=== PATIENT | female | born 1945 | race Caucasian/White ===

== ENCOUNTER 2019-07-17 17:59 | Emergency (ER) | payer OTHER ==
[2019-07-17] MEDS ORDERED: NA CHLORIDE 0.9% 1,000 ML ONE (20:10)
[2019-07-17] MEDS ORDERED: FOLIC ACID 5 MG/ML VIAL ONE (20:12)
--- NOTE | 2019-07-17 20:28 | RAD REPORT ---
EXAM DESCRIPTION: CT - Head C Spine Mpr Wo Con - 07/17/2019 8:15 pm CLINICAL HISTORY: Head and neck injury status post fall. Head and neck pain COMPARISON: 2013 TECHNIQUE: Computed axial tomography of the head and cervical spine was obtained. Sagittal and coronal reconstruction was performed. All CT scans are performed using dose optimization technique as appropriate and may include automated exposure control or mA/KV adjustment according to patient size. FINDINGS: An intracranial bleed is not seen. The ventricles are normal in caliber. An extra-axial fluid collection is not noted.Fluid within the v isualized sinuses and mastoids is not seen A cervical fracture is not visualized. No dislocation is noted. Mild anterior subluxation C4 on C5 un changed. Spondylosis involves cervical spine. Moderate central spinal stenosis C5-6. Small area sclerosis within the C7 vertebral body is unchanged and is benign IMPRESSION: No acute intracranial abnormality is seen. A cervical fracture is not visualized. If the patient continues to have symptoms to suggest intracra nial /spinal cord pathology then MRI would be recommended
[2019-07-17 20:42] LABS: Protime INR 0.95
[2019-07-17 20:44] LABS: Absolute Lymphocytes (CBC) 2.2 K/uL (0.7-4.9); Basophils % 0.5 % (0-1.3); Hematocrit 35.1 % (36.0-45.0); MPV 8.3 fL (7.6-11.3); RBC Red Blood Cell Count 3.63 M/uL (3.86-4.86)
[2019-07-17 20:52] LABS: ALT/SGPT 17 U/L (12-78); AST/SGOT 10 U/L (15-37); Albumin 3.7 g/dL (3.4-5.0); Alkaline Phosphatase 108 U/L (45-117); BUN Blood Urea Nitrogen 11 mg/dL (7-18); Bicarbonate 28 mmol/L (21-32); Bilirubin Direct 0.1 mg/dL (0-0.2); Bilirubin Total 0.5 mg/dL (0.2-1.0); Glucose Level 86 mg/dL (74-106); Magnesium 2.5 mg/dL (1.8-2.4); NT PRO-BNP 130 pg/mL (<125); Potassium 3.6 mmol/L (3.5-5.1); Protein, Total 6.9 g/dL (6.4-8.2); Sodium Level 142 mmol/L (136-145); Troponin (Emerg Dept Use Only) < 0.02 ng/mL (0.0-0.045)
--- NOTE | 2019-07-17 20:52 | RAD REPORT ---
EXAM DESCRIPTION: [place] Single View07/17/2019 8:36 pm CLINICAL HISTORY: cough COMPARISON: 2017 FINDINGS: Calcified right lung granulomas are present The lungs appear clear of acute infiltrate. The heart is normal size IMPRESSION: No acute abnormalities displayed
[2019-07-17 20:59] LABS: Urine Blood 1+ (NEG); Urine Glucose NEGATIVE (NEG); Urine Protein NEGATIVE (NEG)
[2019-07-17] MEDS ORDERED: ASPIRIN 81 MG CHEWABLE TABLET ONE (21:38)
[2019-07-17] MEDS ORDERED: CEFTRIAXONE/SWI 1gm 1 GM/10 ML SYR ONE (21:38)
--- NOTE | 2019-07-17 21:58 | ER ---
Nurse's Notes [facility] Name: Diane Selby Age: 73 yrs Sex: Female : 1945 Arrival Date: 07/17/2019 Time: 18:11 Bed 14 Private MD: Diagnosis: Weakness;Tremor, unspecified Presentation: 07/17 18:15 Presenting complaint: Patient states: generalized tremors that began 1 hour ago. Pt has ss no other complaints at this time. Transition of care: patient was not received from another setting of care. Onset of symptoms was July 17, 2019. Risk Assessment: Do you want to hurt yourself or someone else? Patient reports no desire to harm self or others. Initial Sepsis Screen: Does the patient meet any 2 criteria? No. Patient's initial sepsis screen is negative. Does the patient have a suspected source of infection? No. Patient's initial sepsis screen is negative. Care prior to arrival: Glucose check: 82. 18:15 Method Of Arrival: EMS: [facility] ss 18:15 Acuity: ANGE 3 ss Historical: - Allergies: 18:17 Codeine; ss - PMHx: 18:17 CVA; Dementia; ESSENTIAL TREMORS; Myocardial infarction; ss - PSHx: 18:17 Hysterectomy; CYST REMOVED FROM BREAST; ss - Immunization history:: Adult Immunizations up to date. - Social history:: Smoking status: Patient/guardian denies using tobacco. - Ebola Screening: : Patient denies exposure to infectious person Patient denies travel to an Ebola-affected area in the 21 days before illness onset. - Family history:: not pertinent. Screenin:18 Abuse screen: Denies threats or abuse. Denies injuries from another. Nutritional ss screening: No deficits noted. Tuberculosis screening: Never had TB. 18:21 VAN Screening: Arm Drift: Patient shows no arm weakness. Visual Disturbance: No visual ss disturbance noted. Aphasia: No aphasia noted. Neglect: No neglect noted. 20:52 Fall Risk Fall in past 12 months (25 points). IV access (20 points). Ambulatory Aid- jd3 None/Bed Rest/Nurse Assist (0 pts). Gait- Normal/Bed Rest/Wheelchair (0 pts) Mental Status- Oriented to own ability (0 pts). Total Maurer Fall Scale indicates Low Risk Score (25-44 pts). Fall prevention measures have been instituted. Side Rails Up X 2 Placed close to Nursing Station Frequent Obs/Assesments occuring Family Present and informed to notify staff if they need to leave bedside. Assessment: 19:49 General: Appears in no apparent distress. comfortable, Behavior is calm, cooperative, jd3 appropriate for age. Pain: Denies pain. Neuro: Level of Consciousness is awake, alert, obeys commands, Oriented to person, place, time, On Air Director are equal bilaterally Moves all extremities. Full function Speech is normal, Facial symmetry appears normal, Pupils are PERRLA, Intact. Cardiovascular: Denies chest pain, Capillary refill < 3 seconds Patient's skin is warm and dry. Respiratory: Airway is patent Respiratory effort is even, unlabored, Respiratory pattern is regular, symmetrical, Denies cough, shortness of breath. GI: No signs and/or symptoms were reported involving the gastrointestinal system. Patient currently denies diarrhea, nausea, vomiting. : No signs and/or symptoms were reported regarding the genitourinary system. EENT: No signs and/or symptoms were reported regarding the EENT system. Derm: Skin is intact, Skin is dry, Skin is normal, Skin temperature is warm. Musculoskeletal: Circulation, motion, and sensation intact. Range of motion: intact in all extremities. 20:51 Reassessment: Patient appears in no apparent distress at this time. No changes from jd3 previously documented assessment. Patient and/or family updated on plan of care and expected duration. Pain level reassessed. Patient is alert, oriented x 3, equal unlabored respirations, skin warm/dry/pink. Patient denies pain at this time. 22:08 Reassessment: Patient appears in no apparent distress at this time. Patient and/or jd3 family updated on plan of care and expected duration. Pain level reassessed. Patient is alert, oriented x 3, equal unlabored respirations, skin warm/dry/pink. reported understanding of discharge instructions. even and steady gait upon discharge. Patient denies pain at this time. Patient states feeling better. Vital Signs: 18:17 BP 140 / 55; Pulse 80; Resp 17; Temp 98.5(TE); Pulse Ox 100% on R/A; Height 5 ft. 3 in. ss (160.02 cm); Pain 0/10; 20:52 BP 112 / 58; Pulse 76; Resp 18 S; Pulse Ox 100% on R/A; jd3 NIH Stroke Scale Scores: 18:18 NIHSS Score: 0 ss ED Course: 18:11 Patient arrived in ED. rn 18:16 Triage completed. ss 18:17 Arm band placed on right wrist. ss 18:18 Patient has correct armband on for positive identification. Bed in low position. Call ss light in reach. Side rails up X 1. worker's compensation claims examiner on. Pulse ox on. NIBP on. 18:18 Patient maintains SpO2 saturation greater than 95% on room air. ss 18:22 EKG done, by ED staff, reviewed by Bi Galicia MD. jb1 18:57 Amina Meyers, RN is Primary Nurse. rb1 19:43 Michael Chaes MD is Attending Physician. leatha 20:05 Primary Nurse role handed off by Amina Meyers, RN jd3 20:05 Alon Bailey, MOE is Primary Nurse. jd3 20:06 Inserted saline lock: 20 gauge in left antecubital area, using aseptic technique. Blood mw2 collected. 20:18 CT Head C Spine In Process Unspecified. EDMS 20:37 XRAY Chest (1 view) In Process Unspecified. EDMS 21:57 Narciso Garcia MD is Referral Physician. leatha 22:07 No provider procedures requiring assistance completed. IV discontinued, intact, jd3 bleeding controlled, No redness/swelling at site. Pressure dressing applied. Administered Medications: 20:29 Drug: NS 0.9% 1000 ml Route: IV; Rate: 1 bolus; Site: left antecubital; jd3 22:10 Follow up: Response: No adverse reaction; IV Status: Completed infusion; IV Intake: jd3 1000ml 20:29 Drug: foLIC Acid 1 mg Route: IVPB; Site: left antecubital; jd3 22:10 Follow up: Response: No adverse reaction; IV Status: Completed infusion jd3 21:43 Drug: Rocephin 1 grams Route: IV; Rate: per protocol; Site: left antecubital; jd3 22:10 Follow up: Response: No adverse reaction; IV Status: Completed infusion jd3 21:45 Drug: Aspirin Chewable Tablet 324 mg {Note: pt given 3 tabs as verbal ordered by jd3 provider because pt took 1 tab at home..} Route: PO; 22:11 Follow up: Response: No adverse reaction jd3 Point of Care Testing: Blood Glucose: 18:17 Blood Glucose: 80 mg/dL; ss Ranges: Intake: 22:10 IV: 1000ml; Total: 1000ml. jd3 Outcome: 21:57 Discharge ordered by . leatha 22:07 Discharged to home ambulatory, with family. jd3 22:07 Condition: stable 22:07 Discharge instructions given to patient, family, Instructed on discharge instructions, follow up and referral plans. medication usage, Demonstrated understanding of instructions, follow-up care, medications, Prescriptions given X 1. 22:09 Patient left the ED. jd3 NIH Stroke Scale - NIH Stroke Score Date: 07/17/2019 Time: 18:18 Total Score = 0 1a. Level of Consciousness (LOC) - 0(Alert) 1b. Level of Consciousness (LOC) (Year \T\ Age) - 0(Both) 1c. LOC Commands (Open \T\ Closes Eyes/Lead Furnace Operator) - 0(Both) 2. Best Gaze (Lateral Gaze Paresis) - 0(Normal) 3. Visual Field Loss - 0(No visual loss) 4. Facial Palsy - 0(Normal) 5a. Left Arm: Motor (10-second hold) - 0(No drift) 5b. Right Arm: Motor (10-second hold) - 0(No drift) 6a. Left Leg: Motor (5-second hold - always test supine) - 0(No drift) 6b. Right Leg: Motor (5-second hold - always test supine) - 0(No drift) 7. Limb Ataxia (finger/nose \T\ heel/rodriguez - test with eyes open) - 0(Absent) 8. Sensory Loss (pinprick arms/legs/face) - 0(Normal) 9. Best Language: Aphasia (description/naming/reading) - 0(No aphasia) 10. Dysarthria (speech clarity - read or repeat words) - 0(Normal) 11. Extinction and Inattention (visual/tactile/auditory/spatial/personal) - 0(No abnormality) Initials: ss Addendum: 07/23/2019 08:27 Addendum: Culture Results: Positive urine culture. Bacteria is resistant to, iw has intermediate sensitivity, or is not tested against prescribed antibiotics. Report given to RADHA for further evaluation and then to associate professor of library science for follow up with patient. Phone call Attempt #1 phone number is not a working number. Signatures: Dispatcher [employer] EDOscar Ramirez jb1 Michael Chase MD MD cha Williams, Irene, RN RN Bi Taylor MD MD rn Smirch, Shelby, RN RN ss Amina Meyers, MOE RN rb1 Alon Bailey RN RN jbrianne RomanCharitoMeera mw2 Corrections: (The following items were deleted from the chart) 07/17 18:16 18:15 Presenting complaint: Patient states: generalizes tremors that began 1 ss hour ago. Pt has no other complaints at this time. ss 20:52 19:49 Neuro: Level of Consciousness is awake, alert, obeys commands, Oriented jd3 to person, place, time, On Air Director are equal bilaterally Moves all extremities. Full function Speech is normal, Facial symmetry appears normal, Pupils are PERRLA, Intact jd3 21:33 20:52 BP 112 / 48; Pulse 76bpm; Resp 18bpm; Spontaneous; Pulse Ox 100% RA; jd3 jd3
--- NOTE | 2019-07-17 21:58 | EDPHYS ---
Physician Documentation [facility] Name: Diane Selby Age: 73 yrs Sex: Female : 1945 Arrival Date: 07/17/2019 Time: 18:11 Bed 14 Private MD: ED Physician Michael Chase HPI: 07/17 19:54 This 73 yrs old Female presents to ER via EMS with complaints of Tremor. leatha 19:54 fall reported, stroke is the concern. Onset: The symptoms/episode began/occurred just leatha prior to arrival. Severity of symptoms: At their worst the symptoms were mild in the emergency department the symptoms are unchanged. The patient has not experienced similar symptoms in the past. Historical: - Allergies: 18:17 Codeine; ss - PMHx: 18:17 CVA; Dementia; ESSENTIAL TREMORS; Myocardial infarction; ss - PSHx: 18:17 Hysterectomy; CYST REMOVED FROM BREAST; ss - Immunization history:: Adult Immunizations up to date. - Social history:: Smoking status: Patient/guardian denies using tobacco. - Ebola Screening: : Patient denies exposure to infectious person Patient denies travel to an Ebola-affected area in the 21 days before illness onset. - Family history:: not pertinent. ROS: 19:54 Constitutional: Negative for fever, chills, and weight loss, Eyes: Negative for injury, leatha pain, redness, and discharge, ENT: Negative for injury, pain, and discharge, Neck: Negative for injury, pain, and swelling, Cardiovascular: Negative for chest pain, palpitations, and edema, Respiratory: Negative for shortness of breath, cough, wheezing, and pleuritic chest pain, Abdomen/GI: Negative for abdominal pain, nausea, vomiting, diarrhea, and constipation, Back: Negative for injury and pain, : Negative for injury, bleeding, discharge, and swelling, MS/Extremity: Negative for injury and deformity, Skin: Negative for injury, rash, and discoloration, Neuro: Negative for headache, weakness, numbness, tingling, and seizure, Psych: Negative for depression, anxiety, suicide ideation, homicidal ideation, and hallucinations, Allergy/Immunology: Negative for hives, rash, and allergies, Endocrine: Negative for neck swelling, polydipsia, polyuria, polyphagia, and marked weight changes, Hematologic/Lymphatic: Negative for swollen nodes, abnormal bleeding, and unusual bruising. Exam: 19:54 Constitutional: This is a well developed, well nourished patient who is awake, alert, leatha and in no acute distress. Head/Face: Normocephalic, atraumatic. Eyes: Pupils equal round and reactive to light, extra-ocular motions intact. Lids and lashes normal. Conjunctiva and sclera are non-icteric and not injected. Cornea within normal limits. Periorbital areas with no swelling, redness, or edema. ENT: Nares patent. No nasal discharge, no septal abnormalities noted. Tympanic membranes are normal and external auditory canals are clear. Oropharynx with no redness, swelling, or masses, exudates, or evidence of obstruction, uvula midline. Mucous membranes moist. Neck: Trachea midline, no thyromegaly or masses palpated, and no cervical lymphadenopathy. Supple, full range of motion without nuchal rigidity, or vertebral point tenderness. No Meningismus. Chest/axilla: Normal chest wall appearance and motion. Nontender with no deformity. No lesions are appreciated. Cardiovascular: Regular rate and rhythm with a normal S1 and S2. No gallops, murmurs, or rubs. Normal PMI, no JVD. No pulse deficits. Respiratory: Lungs have equal breath sounds bilaterally, clear to auscultation and percussion. No rales, rhonchi or wheezes noted. No increased work of breathing, no retractions or nasal flaring. Abdomen/GI: Soft, non-tender, with normal bowel sounds. No distension or tympany. No guarding or rebound. No evidence of tenderness throughout. Back: No spinal tenderness. No costovertebral tenderness. Full range of motion. Female : Normal external genitalia. Skin: Warm, dry with normal turgor. Normal color with no rashes, no lesions, and no evidence of cellulitis. MS/ Extremity: Pulses equal, no cyanosis. Neurovascular intact. Full, normal range of motion. Neuro: Awake and alert, GCS 15, oriented to person, place, time, and situation. Cranial nerves II-XII grossly intact. Motor strength 5/5 in all extremities. Sensory grossly intact. Cerebellar exam normal. Normal gait. Psych: Awake, alert, with orientation to person, place and time. Behavior, mood, and affect are within normal limits. Vital Signs: 18:17 BP 140 / 55; Pulse 80; Resp 17; Temp 98.5(TE); Pulse Ox 100% on R/A; Height 5 ft. 3 in. ss (160.02 cm); Pain 0/10; 20:52 BP 112 / 58; Pulse 76; Resp 18 S; Pulse Ox 100% on R/A; jd3 NIH Stroke Scale Scores: 18:18 NIHSS Score: 0 ss MDM: 19:43 Patient medically screened. [facility] 19:56 Data reviewed: vital signs, nurses notes, lab test result(s), EKG, radiologic studies, [facility] CT scan, plain films. 07/17 18:17 Order name: Glucose, Ancillary Testing; Complete Time: 21:06 EDMS 07/17 19:54 Order name: Basic Metabolic Panel; Complete Time: 21:06 [facility] 07/17 19:54 Order name: CBC with Diff; Complete Time: 21:06 [facility] 07/17 19:54 Order name: LFT's; Complete Time: 21:06 [facility] 07/17 19:54 Order name: Magnesium; Complete Time: 21:06 [facility] 07/17 19:54 Order name: NT PRO-BNP; Complete Time: 21:06 [facility] 07/17 19:54 Order name: PT-INR; Complete Time: 21:06 [facility] 07/17 19:54 Order name: Troponin (emerg Dept Use Only); Complete Time: 21:06 [facility] 07/17 19:54 Order name: XRAY Chest (1 view); Complete Time: 21:06 [facility] 07/17 19:54 Order name: CT Head C Spine; Complete Time: 21:06 [facility] 07/17 19:54 Order name: Urine Culture [facility] 07/17 20:22 Order name: Urine Dipstick--Ancillary (enter results); Complete Time: 21:06 ar5 07/17 19:54 Order name: EKG; Complete Time: 19:55 [facility] 07/17 19:54 Order name: Cardiac monitoring; Complete Time: 20:24 [facility] 07/17 19:54 Order name: EKG - Nurse/Tech; Complete Time: 19:57 [facility] 07/17 19:54 Order name: IV Saline Lock; Complete Time: 20:24 [facility] 07/17 19:54 Order name: Labs collected and sent; Complete Time: 20:24 [facility] 07/17 19:54 Order name: O2 Per Protocol; Complete Time: 20:05 [facility] 07/17 19:54 Order name: O2 Sat Monitoring; Complete Time: 20:05 [facility] 07/17 19:54 Order name: Urine Dipstick-Ancillary (obtain specimen); Complete Time: 20:24 [facility] Administered Medications: 20:29 Drug: NS 0.9% 1000 ml Route: IV; Rate: 1 bolus; Site: left antecubital; jd3 22:10 Follow up: Response: No adverse reaction; IV Status: Completed infusion; IV Intake: jd3 1000ml 20:29 Drug: foLIC Acid 1 mg Route: IVPB; Site: left antecubital; jd3 22:10 Follow up: Response: No adverse reaction; IV Status: Completed infusion jd3 21:43 Drug: Rocephin 1 grams Route: IV; Rate: per protocol; Site: left antecubital; jd3 22:10 Follow up: Response: No adverse reaction; IV Status: Completed infusion jd3 21:45 Drug: Aspirin Chewable Tablet 324 mg {Note: pt given 3 tabs as verbal ordered by [facility] provider because pt took 1 tab at home..} Route: PO; 22:11 Follow up: Response: No adverse reaction [facility] Point of Care Testing: Blood Glucose: 18:17 Blood Glucose: 80 mg/dL; Ranges: Critical Glucose Levels:Adult <50 mg/dl or >400 mg/dl <40 mg/dl or >180 mg/dl Disposition: 07/17/19 21:57 Discharged to Home. Impression: Weakness, Tremor, unspecified. - Condition is Stable. - Discharge Instructions: Tremor, Weakness, Fatigue, Weakness, [id number], Aspirin and Your Heart. - Prescriptions for Bactrim DS 800- 160 mg Oral Tablet - take 1 tablet by ORAL route every 12 hours for 5 days; 10 tablet. - Medication Reconciliation Form, Thank You Letter, Antibiotic Education, Prescription Opioid Use form. - Follow up: Private Physician; When: 2 - 3 days; Reason: Recheck today's complaints, Continuance of care, Re-evaluation by your physician. Follow up: Narciso Garcia MD; When: 2 - 3 days; Reason: Recheck today's complaints, Continuance of care, Re-evaluation by your physician. - Problem is new. - Symptoms have improved. NIH Stroke Scale - NIH Stroke Score Date: 07/17/2019 Time: 18:18 Total Score = 0 1a. Level of Consciousness (LOC) - 0(Alert) 1b. Level of Consciousness (LOC) (Year \T\ Age) - 0(Both) 1c. LOC Commands (Open \T\ Closes Eyes/Cullet Washer) - 0(Both) 2. Best Gaze (Lateral Gaze Paresis) - 0(Normal) 3. Visual Field Loss - 0(No visual loss) 4. Facial Palsy - 0(Normal) 5a. Left Arm: Motor (10-second hold) - 0(No drift) 5b. Right Arm: Motor (10-second hold) - 0(No drift) 6a. Left Leg: Motor (5-second hold - always test supine) - 0(No drift) 6b. Right Leg: Motor (5-second hold - always test supine) - 0(No drift) 7. Limb Ataxia (finger/nose \T\ heel/rodriguez - test with eyes open) - 0(Absent) 8. Sensory Loss (pinprick arms/legs/face) - 0(Normal) 9. Best Language: Aphasia (description/naming/reading) - 0(No aphasia) 10. Dysarthria (speech clarity - read or repeat words) - 0(Normal) 11. Extinction and Inattention (visual/tactile/auditory/spatial/personal) - 0(No abnormality) Initials: Signatures: Dispatcher [employer] EDMichael Spears MD MD cha Smirch, Shelby, RN RN Alon Lara RN RN jd3 Corrections: (The following items were deleted from the chart) 21:57 21:57 07/17/2019 21:57 Discharged to Home. Impression: Weakness; Tremor, leatha unspecified. Condition is Stable. Forms are Medication Reconciliation Form, Thank You Letter, Antibiotic Education, Prescription Opioid Use. Follow up: Private Physician; When: 2 - 3 days; Reason: Recheck today's complaints, Continuance of care, Re-evaluation by your physician. Problem is new. Symptoms have improved. [facility] 22:09 21:57 07/17/2019 21:57 Discharged to Home. Impression: Weakness; Tremor, jd3 unspecified. Condition is Stable. Forms are Medication Reconciliation Form, Thank You Letter, Antibiotic Education, Prescription Opioid Use. Follow up: Private Physician; When: 2 - 3 days; Reason: Recheck today's complaints, Continuance of care, Re-evaluation by your physician. Follow up: Narciso Garcia; When: 2 - 3 days; Reason: Recheck today's complaints, Continuance of care, Re-evaluation by your physician. Problem is new. Symptoms have improved. leatha
[2019-07-17 23:59] VITALS: TEMP 98.5; O2SAT 100
[2019-07-18 00:40] VITALS: BP 112/58
--- NOTE | 2019-07-18 07:02 | EKG ---
Test Date: 2019-07-17 Test Time: 18:15:26 Riveting Machine Operator Tape Control: PARAM MEASUREMENT RESULTS: Intervals: Rate: 80 CO: 142 QRSD: 84 QT: 364 QTc: 419 [place]: P: 67 CO: 142 QRS: 55 T: 66 INTERPRETIVE STATEMENTS: Normal sinus rhythm Normal ECG Compared to ECG 08/30/2016 07:16:36 T-wave abnormality no longer present Possible ischemia no longer present Prolonged QT interval no longer present Electronically Signed On 07-18-19 07:01:26 TEST AND TURN UP TECHNICIAN by Elian Xie
== END 2019-07-17 22:09 | disposition home or self-care (01) ==
LOC: ER 17:59
DX: R53.1 Weakness (principal); W19.XXXA Unspecified fall, initial encounter; Z86.73 Personal history of transient ischemic attack (TIA), and cerebral infarction without residual deficits; Z88.5 Allergy status to narcotic agent
CPT/HCPCS: 96365; 96368; 93005; 87088; 85025; 87086; 80048; 36415; 83735; 85610; 82947; 80076; 87077; 87186; 81003; 84484; 83880; 70450; 72125; 71045; 99285; J0696; J7030

== ENCOUNTER 2020-01-27 18:44 | Observation (INO) | payer OTHER ==
--- NOTE | 2020-01-27 19:37 | RAD REPORT ---
EXAM DESCRIPTION: RAD - Chest Single View - 01/27/2020 7:29 pm CLINICAL HISTORY: CHEST PAIN Chest pain. COMPARISON: Chest Single View dated 07/17/2019; Chest Single View dated 08/28/2016; Chest Single View dated 02/29/2016; CHEST SINGLE VIEW dated 12/03/2014 FINDINGS: Portable technique limits examination quality. The lungs are mildly emphysematous but grossly clear. The heart is normal in size. No displaced fract ures. IMPRESSION: No acute intrathoracic process suspected.
[2020-01-27 19:41] LABS: Protime INR 0.96
[2020-01-27 19:43] LABS: Absolute Lymphocytes (CBC) 2.1 K/uL (0.7-4.9); Basophils % 0.5 % (0-1.3); Hematocrit 36.1 % (36.0-45.0); MPV 8.6 fL (7.6-11.3); RBC Red Blood Cell Count 4.01 M/uL (3.86-4.86)
[2020-01-27 19:55] LABS: BUN Blood Urea Nitrogen 13 mg/dL (7-18); Bicarbonate 24 mmol/L (21-32); Glucose Level 85 mg/dL (74-106); Magnesium 2.3 mg/dL (1.8-2.4); NT PRO-BNP 261 pg/mL (<450); Potassium 3.6 mmol/L (3.5-5.1); Sodium Level 144 mmol/L (136-145); Troponin (Emerg Dept Use Only) < 0.02 ng/mL (0.0-0.045)
--- NOTE | 2020-01-27 20:42 | ER ---
Nurse's Notes [facility] Name: Diane Selby Age: 74 yrs Sex: Female : 1945 Arrival Date: 01/27/2020 Time: 18:56 Bed 19 Private MD: Diagnosis: Chest pain, unspecified Presentation: 01/26 18:57 Chief complaint: EMS states: "Family was discussing possibly placing her in a nursing home when patient started complaining of chest pain, patient told family it felt like an elephant was sitting on her chest.". Coronavirus screen: Patient denies a cough. Patient denies shortness of breath or difficulty breathing. Patient denies measured and/or subjective temperature greater than 100.4F prior to today's visit. Patient denies travel on a cruise ship or to a country the [facility] currently lists as an affected area. Patient denies contact with known and/or suspected case of COVID-19. Ebola Screen: No symptoms or risks identified at this time. Initial Sepsis Screen: Does the patient meet any 2 criteria? Altered Mental Status. No. Patient's initial sepsis screen is negative. Does the patient have a suspected source of infection? No. Patient's initial sepsis screen is negative. Risk Assessment: Do you want to hurt yourself or someone else? Patient reports no desire to harm self or others. Onset of symptoms was January 27, 2020 at 16:30. 18:57 Method Of Arrival: EMS: [facility] 18:57 Acuity: ANGE 3 vc Triage Assessment: 18:50 General: Appears in no apparent distress. comfortable, Behavior is calm, anxious. Pain: vc Complains of pain in chest Pain does not radiate. Pain currently is 7 out of 10 on a pain scale. Quality of pain is described as crushing, heavy, pressure. Historical: - Allergies: 19:02 Codeine; vc - PMHx: 19:02 CVA; ESSENTIAL TREMORS; Myocardial infarction; Dementia; Alzheimers; vc - Immunization history:: Adult Immunizations up to date. - Social history:: Smoking status: Patient denies any tobacco usage or history of. - Family history:: not pertinent. - Hospitalizations: : No recent hospitalization is reported. Screenin:04 Abuse screen: Denies threats or abuse. Nutritional screening: No deficits noted. vc Tuberculosis screening: No symptoms or risk factors identified. Fall Risk None identified. Assessment: 19:00 General: Appears in no apparent distress. comfortable, Behavior is calm, cooperative, vc appropriate for age. Pain: Complains of pain in chest. Neuro: Level of Consciousness is awake, obeys commands, confused, Oriented to person, place, situation, Patient believes it is 12 years ago.. Almond Paste Mixer are equal bilaterally Speech is normal. Cardiovascular: Capillary refill < 3 seconds Patient's skin is warm and dry. Cardiovascular: Rhythm is irregular. Respiratory: Airway is patent Respiratory effort is even, unlabored, Respiratory pattern is. GI: No signs and/or symptoms were reported involving the gastrointestinal system. : No signs and/or symptoms were reported regarding the genitourinary system. Derm: Skin is intact, Skin temperature is warm. 20:00 Reassessment: Patient appears in no apparent distress at this time. Patient and/or vc family updated on plan of care and expected duration. Pain level reassessed. Patient is alert, oriented x 3, equal unlabored respirations, skin warm/dry/pink. 21:00 Reassessment: Patient appears in no apparent distress at this time. Patient and/or vc family updated on plan of care and expected duration. Pain level reassessed. Patient is alert, oriented x 3, equal unlabored respirations, skin warm/dry/pink. Patient states symptoms have improved. 22:00 Reassessment: Patient appears in no apparent distress at this time. Patient and/or vc family updated on plan of care and expected duration. Pain level reassessed. Patient is alert, oriented x 3, equal unlabored respirations, skin warm/dry/pink. Patient states feeling better. Patient states symptoms have improved. 22:15 Reassessment: Patient handed over to MOE Funk. See [employer] for further evaluation. vc 23:30 Reassessment: pt wandering hallway, attempt to redirect pt back to room, unsuccessful. 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 pt informed is currently in the ED and has no basketball game scheduled for in the morning, pt stated understanding. 01/27 01:00 Reassessment: pt appears restless, wandering the halls, staff redirecting pt back to sg exam room. pt has ok'd a lab draw to repeat troponin, pt stated understanding, lab has been sent. Vital Signs: 01/26 18:57 BP 142 / 61; Pulse 82; Resp 19; Temp 98.8(O); Pulse Ox 100% on R/A; Weight 58.97 kg; vc Height 5 ft. 4 in. (162.56 cm); Pain 7/10; 20:00 BP 142 / 74; Pulse 78; Resp 17; Pulse Ox 100% ; vc 21:00 BP 147 / 61; Pulse 77; Resp 14; Pulse Ox 100% ; vc 21:30 BP 135 / 63; Pulse 72; Resp 16; Pulse Ox 100% on R/A; vc 18:57 Body Mass Index 22.31 (58.97 kg, 162.56 cm) vc ED Course: 16:50 Patient has correct armband on for positive identification. Placed in gown. Bed in low jp3 position. Call light in reach. Side rails up X 1. Side rails up X2. Warm blanket given. Verbal reassurance given. environmental monitoring technician on. Pulse ox on. NIBP on. 18:44 Arm band placed on right wrist. Patient placed on a stretcher, on library monitor, on vc pulse oximetry. 18:50 Inserted saline lock: 20 gauge in right antecubital area, using aseptic technique. vc 18:56 Patient arrived in ED. vc 18:59 EKG done, by ED staff, reviewed by Michael Chase MD. Patient maintains SpO2 saturation jp3 greater than 95% on room air. 19:01 Triage completed. vc 19:09 Bi Galicia MD is Attending Physician. rn 19:29 XRAY Chest (1 view) In Process Unspecified. EDMS 19:30 Initial lab(s) drawn, by ED staff, sent to lab. jp3 19:35 Shirley Julien, MOE is Primary Nurse. vc 20:41 Patricia Aguila MD is Hospitalizing Provider. rn 22:15 No provider procedures requiring assistance completed. Patient admitted, IV remains in vc place. Administered Medications: 21:29 Drug: Aspirin Chewable Tablet 324 mg Route: PO; vc 22:41 Follow up: Response: No adverse reaction vc 23:44 Drug: Ativan 0.25 mg Route: IVP; Site: right antecubital; vc 01/27 00:51 Not Given (Other Intervention Used): SEROquel 25 mg PO once sg 01:05 Drug: Benadryl 25 mg Route: IVP; Site: right antecubital; sg 01:20 Follow up: Response: No adverse reaction sg Outcome: 01/26 20:41 Decision to Hospitalize by Provider. rn 22:30 Admitted to ER Hold. Please see [facility] for further documentation. vc 22:30 Condition: stable 22:30 Instructed on the need for admit. 01/27 07:44 Patient left the ED. Signatures: Dispatcher [employer] EDMS Raza Canales RN RN Bi Galicia MD MD rn Smirch, Shelby, RN RN Marquise Rowe jp3 Shirley Julien RN RN vc
--- NOTE | 2020-01-27 20:42 | EDPHYS ---
Physician Documentation [facility] Name: Diane Selby Age: 74 yrs Sex: Female : 1945 Arrival Date: 01/27/2020 Time: 18:56 Bed 19 Private MD: ED Physician Bi Galicia HPI: 01/26 19:49 This 74 yrs old Female presents to ER via EMS with complaints of Chest Pain > rn 29 y/o. 19:49 The patient or guardian reports chest pain that is located primarily in the substernal rn area. Onset: just prior to arrival. The pain does not radiate. Associated signs and symptoms: Pertinent negatives: abdominal pain, cough, diaphoresis, shortness of breath, syncope, vomiting. The chest pain is described as a heaviness. Duration: The patient or guardian reports a single episode, that is now resolved. Modifying factors: The symptoms are alleviated by nothing. the symptoms are aggravated by activity. Severity of pain: At its worst the pain was mild in the emergency department the pain has resolved. The patient has experienced similar episodes in the past. The patient has not recently seen a physician. Reports working in garden, experienced chest heaviness, like elephant on chest, slightly different from previous ID. Reports chest pain once a week or 2. Pain resolved after rest. No recent injury. No fever/cough. Family reports that was talking about putting her [place] [facility], and gives nurse different story than what patient is giving. . Historical: - Allergies: 19:02 Codeine; vc - PMHx: 19:02 CVA; ESSENTIAL TREMORS; Myocardial infarction; Dementia; Alzheimers; vc - Immunization history:: Adult Immunizations up to date. - Social history:: Smoking status: Patient denies any tobacco usage or history of. - Family history:: not pertinent. - Hospitalizations: : No recent hospitalization is reported. ROS: 19:49 Constitutional: Negative for fever, chills, and weight loss, Eyes: Negative for injury, rn pain, redness, and discharge, Neck: Negative for injury, pain, and swelling, Cardiovascular: Negative for palpitations, and edema, Respiratory: Negative for shortness of breath, cough, wheezing, and pleuritic chest pain, Abdomen/GI: Negative for abdominal pain, nausea, vomiting, diarrhea, and constipation, MS/Extremity: Negative for injury and deformity, Skin: Negative for injury, rash, and discoloration, Neuro: Negative for headache, weakness, numbness, tingling, and seizure. Exam: 19:49 Constitutional: This is a well developed, well nourished patient who is awake, alert, rn and in no acute distress. Head/Face: Normocephalic, atraumatic. Cardiovascular: Regular rate and rhythm. No pulse deficits. Respiratory: Lungs have equal breath sounds bilaterally, clear to auscultation and percussion. No rales, rhonchi or wheezes noted. No increased work of breathing, no retractions or nasal flaring. Abdomen/GI: Soft, non-tender, with normal bowel sounds. No distension or tympany. No guarding or rebound. No evidence of tenderness throughout. Skin: Warm, dry MS/ Extremity: Pulses equal, no cyanosis. Neurovascular intact. Full, normal range of motion. Equal circumference. Neuro: Awake and alert, GCS 15, oriented to person, place, not time. Cranial nerves II-XII grossly intact. Motor strength 5/5 in all extremities. Sensory grossly intact. Cerebellar exam normal. Normal gait. Vital Signs: 18:57 BP 142 / 61; Pulse 82; Resp 19; Temp 98.8(O); Pulse Ox 100% on R/A; Weight 58.97 kg; vc Height 5 ft. 4 in. (162.56 cm); Pain 7/10; 20:00 BP 142 / 74; Pulse 78; Resp 17; Pulse Ox 100% ; vc 21:00 BP 147 / 61; Pulse 77; Resp 14; Pulse Ox 100% ; vc 21:30 BP 135 / 63; Pulse 72; Resp 16; Pulse Ox 100% on R/A; vc 18:57 Body Mass Index 22.31 (58.97 kg, 162.56 cm) vc MDM: 19:09 Patient medically screened. rn 20:41 Differential diagnosis: acute myocardial infarction, acute pericarditis, anxiety, rn coronary artery disease chest wall pain, costochondritis, esophagitis, gastritis, pleurisy, pneumothorax, stable angina, unstable angina. The patient was given aspirin in the Emergency Department. Data reviewed: vital signs, nurses notes, lab test result(s), EKG, radiologic studies, plain films, and as a result, I will admit patient. Counseling: I had a detailed discussion with the patient and/or guardian regarding: the historical points, exam findings, and any diagnostic results supporting the discharge/admit diagnosis, lab results, radiology results, the need for further work-up and treatment in the hospital. Admission orders: after a detailed discussion of the patient's condition and case, the admit orders are written by me. ED course: Admitted to [facility] simpson for cardiac rule out.. 01/26 19:15 Order name: Basic Metabolic Panel; Complete Time: 20:11 01/26 19:15 Order name: CBC with Diff; Complete Time: 19:49 rn 01/26 19:15 Order name: Magnesium; Complete Time: 20:11 01/26 19:15 Order name: NT PRO-BNP; Complete Time: 20:11 01/26 19:15 Order name: PT-INR; Complete Time: 19:49 01/26 19:15 Order name: Troponin (emerg Dept Use Only); Complete Time: 20:11 01/26 21:27 Order name: Basic Metabolic Panel [facility] 01/26 21:27 Order name: Basic Metabolic Panel; Complete Time: 06:53 [facility] 01/26 21:27 Order name: Lipid Profile [facility] 01/26 21:27 Order name: Lipid Profile [facility] 01/26 21:27 Order name: Troponin I [facility] 01/26 21:27 Order name: Troponin I; Complete Time: 06:53 [facility] 01/26 21:27 Order name: Troponin I; Complete Time: 06:53 [facility] 01/26 21:29 Order name: CBC with Automated Diff [facility] 01/26 19:15 Order name: XRAY Chest (1 view); Complete Time: 19:49 01/26 19:15 Order name: EKG; Complete Time: 19:17 rn 01/26 19:15 Order name: Cardiac monitoring; Complete Time: 19:35 rn 01/26 19:15 Order name: EKG - Nurse/Tech; Complete Time: 19:35 01/26 19:15 Order name: IV Saline Lock; Complete Time: 19:35 01/26 21:27 Order name: CONS Physician Consult [facility] 01/26 21:27 Order name: Heart Healthy [facility] 01/26 21:29 Order name: Echo with Doppler [facility] 01/26 21:29 Order name: EKG Electrocardiogram [facility] 01/26 21:29 Order name: EKG Electrocardiogram [facility] 01/26 21:29 Order name: CBC with Automated Diff; Complete Time: 06:53 [facility] 01/27 06:36 Order name: Lipid Profile; Complete Time: 06:53 [facility] 01/26 19:15 Order name: Labs collected and sent; Complete Time: 19:35 rn 01/26 19:15 Order name: O2 Per Protocol; Complete Time: 19:35 rn 01/26 19:15 Order name: O2 Sat Monitoring; Complete Time: 19:35 rn Administered Medications: 21:29 Drug: Aspirin Chewable Tablet 324 mg Route: PO; vc 22:41 Follow up: Response: No adverse reaction vc 23:44 Drug: Ativan 0.25 mg Route: IVP; Site: right antecubital; vc 01/27 00:51 Not Given (Other Intervention Used): SEROquel 25 mg PO once sg 01:05 Drug: Benadryl 25 mg Route: IVP; Site: right antecubital; sg 01:20 Follow up: Response: No adverse reaction sg Disposition: 01/27/20 20:41 Hospitalization ordered by Patricia Simpson for Observation. Preliminary diagnosis is Chest pain, unspecified. - Bed requested for Telemetry/MedSurg (observation). - Status is Observation. ss - Condition is Stable. - Problem is new. - Symptoms have improved. Signatures: Dispatcher [employer] EDPA Raza Canales RN RN sg Nieto, Roman, MD MD rn Smirch, Shelby, RN RN ss Fior Gallegos RN RN tl1 Alon Bailey RN RN jd3 Shirley Julien RN RN vc Corrections: (The following items were deleted from the chart) 01/26 19:54 19:49 Constitutional: This is a well developed, well nourished patient who is awake, rn alert, and in no acute distress. Head/Face: Normocephalic, atraumatic. Cardiovascular: Regular rate and rhythm. No pulse deficits. Respiratory: Lungs have equal breath sounds bilaterally, clear to auscultation and percussion. No rales, rhonchi or wheezes noted. No increased work of breathing, no retractions or nasal flaring. Abdomen/GI: Soft, non-tender, with normal bowel sounds. No distension or tympany. No guarding or rebound. No evidence of tenderness throughout. Skin: Warm, dry MS/ Extremity: Pulses equal, no cyanosis. Neurovascular intact. Full, normal range of motion. Equal circumference. Neuro: Awake and alert, GCS 15, oriented to person, place, time, and situation. Cranial nerves II-XII grossly intact. Motor strength 5/5 in all extremities. Sensory grossly intact. Cerebellar exam normal. Normal gait. rn 21:54 20:41 Hospitalization Ordered by Patricia Simpson MD for Observation. Preliminary jd3 diagnosis is Chest pain, unspecified. Bed requested for Telemetry/MedSurg (observation). Status is Observation. Condition is Stable. Problem is new. Symptoms have improved. rn 01/27 06:06 01/26 21:54 01/27/2020 20:41 Hospitalization Ordered by Patricia Simpson MD for tl1 Observation. Preliminary diagnosis is Chest pain, unspecified. Bed requested for [facility] ER HOLD. Status is Observation. Condition is Stable. Problem is new. Symptoms have improved. jd3 01/27 07:44 06:06 01/27/2020 20:41 Hospitalization Ordered by Patricia Simpson MD for Observation. ss Preliminary diagnosis is Chest pain, unspecified. Bed requested for Telemetry/MedSurg (observation). Status is Observation. Condition is Stable. Problem is new. Symptoms have improved. tl1
[2020-01-27] MEDS ORDERED: ALPRAZOLAM 0.25 MG TABLET PO PRN (21:24)
[2020-01-27] MEDS ORDERED: ACETAMINOPHEN 500 MG TAB PO PRN (21:24)
[2020-01-27] MEDS ORDERED: MORPHINE 4 MG/ML SYR IV PRN (21:24)
[2020-01-27] MEDS ORDERED: LORazepam 2 MG/ML VIAL ONE (23:38)
[2020-01-28] MEDS ORDERED: LORazepam 2 MG/ML VIAL ONE (00:26)
[2020-01-28] MEDS ORDERED: DIPHENHYDRAMINE 50 MG/ML VIAL ONE (01:03)
[2020-01-28 04:31] VITALS: BMI 22.3
[2020-01-28] MEDS ORDERED: METOPROLOL TAR 25 MG TAB ONE (05:56)
[2020-01-28] MEDS: METOPROLOL TAR 50 MG TAB PO SCH ×3 (06:00→08:27)
[2020-01-28 06:02] LABS: Absolute Lymphocytes (CBC) 1.7 K/uL (0.7-4.9); Basophils % 0.7 % (0-1.3); Hematocrit 33.5 % (36.0-45.0); Lymphocytes % 28.2 % (15.3-44.8); MPV 8.4 fL (7.6-11.3); RBC Red Blood Cell Count 3.74 M/uL (3.86-4.86)
--- NOTE | 2020-01-28 06:25 | EKG ---
Test Date: 2020-01-27 Test Time: 18:48:47 Hog Room Supervisor: [facility] MEASUREMENT RESULTS: Intervals: Rate: 79 LA: 144 QRSD: 90 QT: 372 QTc: 426 Shelby: P: 68 LA: 144 QRS: 70 T: 63 INTERPRETIVE STATEMENTS: Sinus rhythm with premature supraventricular complexes Otherwise normal ECG Compared to ECG 07/17/2019 18:15:26 Atrial premature complex(es) now present Electronically Signed On 01-28-20 06:24:21 CDT by Yaya Torres
[2020-01-28 06:36] LABS: BUN Blood Urea Nitrogen 9 mg/dL (7-18); Bicarbonate 23 mmol/L (21-32); Glucose Level 85 mg/dL (74-106); HDL Cholesterol 47 mg/dL (40-60); LDL Cholesterol, Calculated 106 (<130); Potassium 3.6 mmol/L (3.5-5.1); Sodium Level 143 mmol/L (136-145); Troponin I < 0.02 ng/mL (0.0-0.045)
--- NOTE | 2020-01-28 07:37 | P.HP ---
Certification for Inpatient Patient admitted to: Observation With expected LOS: <2 Midnights Patient will require the following post-hospital care: None Practitioner: I am a practitioner with admitting privileges, knowledge of patient current condition, hospital course, and medical plan of care. Services: Services provided to patient in accordance with Admission requirements found in Title 42 Section 412.3 of the Code of Federal Regulations Patient History Date of Service: 01/27/20 Reason for admission: Chest pain rule out acute coronary syndrome History of Present Illness: Patient is 74-year-old female came to the hospital after having chest discomfort. She described as someone sitting on her chest. This pain started after she had discussed going to live in a retirement with her family. She said that was stressful having that conversation that she does not feel like she needs to be in a nursing facility. In the emergency room, she had a cardiac workup which was negative. She has not had a stress test in quite a while. Will rule her out for acute coronary syndrome and then stress test in the morning. Echocardiogram as well. Will also have case management talk with family regarding retirement placement in the future. At this time, admission is for cardiac workup and observation status. Patient does have a history of Parkinson's disease as well as hypertension, dementia, and a prior stroke. Allergies codeine [Codeine] Adverse Reaction (Mild, Verified 02/22/13 04:15) UNKNOWN Home Medications: NK [No Home Meds] 01/28/20 - Past Medical/Surgical History Diabetic: No -: htn -: cva -: NC -: DEMENTIA -: Parkinson's mentioned but not diagnosed -: Dyslipidemia -: hysterectomy -: left breast cyst removal (benign) - Family History Father Family History: Reviewed- Non-Contributory - Social History Smoking Status: Former smoker Alcohol use: No CD- Drugs: No Caffeine use: Yes Review of Systems 10-point ROS is otherwise unremarkable Physical Examination - Vital Signs Temperature: 98.5 F Blood Pressure: 131/53 Pulse: 62 Respirations: 12 Pulse Ox (%): 100 - Physical Exam General: Alert, In no apparent distress, Oriented x3 HEENT: Atraumatic, PERRLA, Mucous membr. moist/pink, EOMI, Sclerae nonicteric Neck: Supple, 2+ carotid pulse no bruit, No LAD, Without JVD or thyroid abnormality Respiratory: Clear to auscultation bilaterally, Normal air movement Cardiovascular: Regular rate/rhythm, Normal S1 S2, No murmurs Gastrointestinal: Normal bowel sounds, Soft and benign, Non-distended, No tenderness Musculoskeletal: No clubbing, No swelling, No tenderness Integumentary: No rashes Neurological: Normal gait, Normal speech, Normal strength at 5/5 x4 extr, Normal tone, Sensation intact, Cranial nerves 3-12 intact, Normal affect Lymphatics: No axilla or inguinal lymphadenopathy - Studies Laboratory Data (last 24 hrs) 01/27/20 19:05: PT 11.3, INR 0.96 01/27/20 19:05: WBC 7.6, Hgb 12.0, Hct 36.1, Plt Count 160 01/27/20 19:05: Sodium 144, Potassium 3.6, BUN 13, Creatinine 1.17, Glucose 85, Magnesium 2.3 Assessment & Plan - Problems (Diagnosis) (1) Chest pain, rule out acute myocardial infarction Current Visit: Yes Status: Acute (2) Alzheimer's disease Current Visit: No Status: Active (3) Hyperlipidemia Current Visit: No Status: Active (4) Hypertensive disorder, systemic arterial Current Visit: No Status: Active (5) Hypothyroidism Current Visit: No Status: Active (6) Parkinson's disease Current Visit: No Status: Active - Plan 1. Serial troponins and EKG 2. Cardiology consultation 3. Echocardiogram and stress test if troponins are negative 4. Anti-platelet therapy, anti coagulation, beta-eli, statin, and O2 as needed 5. IV morphine for pain 6. Nitro p.r.n. 7. Strict blood pressure control 8. Case management evaluation as family wants patient in a retirement Discharge Plan: Home Plan to discharge in: 24 Hours - Advance Directives Does patient have a Living Will: Yes Does patient have a Durable POA for Healthcare: Yes - Code Status/Comfort Care Code Status Assessed: Yes Code Status: Full Code Critical Care: No Time Spent Managing PTS Care (In Minutes): 45
--- NOTE | 2020-01-28 07:50 | P.DS ---
Discharge Date: 01/28/20 Disposition: ROUTINE DISCHARGE Discharge Condition: GOOD Reason for Admission: Chest pain rule out acute coronary syndrome Consultations: Intermediate Accountant - Problems (1) Chest pain, rule out acute myocardial infarction Status: Acute (2) Alzheimer's disease Status: Active (3) Hyperlipidemia Status: Active (4) Hypertensive disorder, systemic arterial Status: Active (5) Hypothyroidism Status: Active (6) Parkinson's disease Status: Active Brief History of Present Illness: Patient is 74-year-old female came to the hospital after having chest disc omfort. She described as someone sitting on her chest. This pain started after she had discussed going to live in a intermediate with her family. She said that was stressful having that conversation that she does not feel like she needs to be in a nursing facility. In the emergency room, she had a cardiac workup which was negative. She has not had a stress test in quite a while. Will rule her out for acute coronary syndrome and then stress test in the morning. Echocardiogram as well. Will also have case management talk with family regarding intermediate placement in the future. At this time, admission is for cardiac workup and observation status. Patient does have a history of Parkinson's disease as well as hypertension, dementia, and a prior stroke. Hospital Course: Patient has done well during hospital stay. Cardiac workup was negative. Stress test was negative as well. At this time, patient is stable for discharge home. Vital Signs/Physical Exam: Temp Pulse Resp BP Pulse Ox 98.5 F 62 12 131/53 L 100 01/28/20 07:37 01/28/20 07:37 01/28/20 07:37 01/28/20 07:37 01/28/20 07:37 General: Alert, In no apparent distress, Oriented x3 Laboratory Data at Discharge: WBC 6.1 K/uL (4.3-10.9) D 01/28/20 05:51 Hgb 11.1 g/dL (12.0-15.0) L 01/28/20 05:51 Hct 33.5 % (36.0-45.0) L 01/28/20 05:51 Plt Count 133 K/uL (152-406) L 01/28/20 05:51 PT 11.3 SECONDS (9.5-12.5) 01/27/20 19:05 INR 0.96 01/27/20 19:05 Sodium 143 mmol/L (136-145) 01/28/20 05:51 Potassium 3.6 mmol/L (3.5-5.1) 01/28/20 05:51 BUN 9 mg/dL (7-18) 01/28/20 05:51 Creatinine 1.07 mg/dL (0.55-1.3) 01/28/20 05:51 Glucose 85 mg/dL (74-106) 01/28/20 05:51 Magnesium 2.3 mg/dL (1.8-2.4) 01/27/20 19:05 Troponin I < 0.02 ng/mL (0.0-0.045) 01/28/20 05:51 Triglycerides Cancelled 01/28/20 06:00 Cholesterol Cancelled 01/28/20 06:00 HDL Cholesterol Cancelled 01/28/20 06:00 Cholesterol/HDL Ratio Cancelled 01/28/20 06:00 Home Medications: Aspirin [Ecotrin 81 MG] 81 mg PO DAILY #30 tablet. 01/28/20 Metoprolol Tartrate 25 mg PO BID #60 tablet 01/28/20 New Medications: Aspirin [Ecotrin 81 MG] 81 mg PO DAILY #30 tablet. Metoprolol Tartrate 25 mg PO BID #60 tablet Patient Discharge Instructions: OK TO DC IV AND DC HOME. FOLLOW-UP WITH PRIMARY CARE PROVIDER IN 1-2 WEEKS. FOLLOW-UP WITH CARDIOLOGY IN 1-2 WEEKS. RETURN TO THE ER IF symptoms worsen. CALL or TEXT DR. BORRERO AT [phone] IF ANY QUESTIONS REGARDING HOSPITAL STAY. PLEASE CALL THE FLOOR AT [phone] IF ANY MEDICATION OR NURSING QUESTIONS. Diet: AHA Activity: Fall precautions Followup: Yaya Torres MD [ACTIVE - CAN ADMIT] - Time spent managing pt's care (in minutes): 25
[2020-01-28] MEDS ORDERED: ASPIRIN EC 81 MG TAB PO SCH (09:00)
[2020-01-28] MEDS ORDERED: ENOXAPARIN 40 MG/0.4 ML SQ SCH (09:00)
[2020-01-28] MEDS ORDERED: REGADENOSON 0.4 MG/5 ML SYR IV ONE (09:08)
[2020-01-28 09:11] VITALS: O2SAT 100
[2020-01-28 12:17] VITALS: BP 133/55; TEMP 98.6
--- NOTE | 2020-01-28 12:23 | RAD REPORT ---
EXAM DESCRIPTION: NM - Rest Stress Cardiac Imaging - 01/28/2020 11:58 am CLINICAL HISTORY: CP Chest pain. COMPARISON: No comparisons TECHNIQUE: The patient was administered approximately 10mCi of Tc 99m Sestamibi prior to resting SPE CT imaging of the heart. The patient was then administered approximately 30 mCi of Tc 99m Sestamibi f ollowing exercise or pharmacologic stress. Multiplanar SPECT images were reviewed. FINDINGS: No stress induced ischemic defect is seen to suggest stress induced ischemia. No fixed def ect is seen to suggest hibernating myocardium or scarred myocardium. The end diastolic volume is 57 ml, the end systolic volume is 22 ml, and the ejection fraction is 62 %. IMPRESSION: No stress induced ischemia.
--- NOTE | 2020-01-28 13:49 | TREADPHA ---
DX: CHEST PAIN Date of Study: 01/28/2020 Ht: 5' 4 " Wt: 130 lb 0 oz Consulting Physician: CALVIN MEDICATIONS: TYLENOL, XANAX, ASPIRIN, LOVENOX, LOPRESSOR HISTORY: 74 YEAR OLD FEMALE WITH HISTORY OF PARKINSONS, HYPERTENSION, DEMENTIA AND CEREBRAL VASCULAR ACCIDENT. ADMITTED FOR CHEST PAIN. PHYSICIAL EXAMINATION: RESTING B.P.: 130/62 RESTING H.R.: 54 RESTING EKG: NORMAL PROTOCOL: LEXISCAN EXERCISE TIME: 3:30 B.P. AT PEAK STRESS: 114/52 IMPRESSION: LEXISCAN STRESS TEST PERFORMED. CARDIOLITE INJECTED PER PROTOCOL. NO SUPRAVENTRICULAR TACHYCARDIA, NO VENTRICULAR TACHYCARDIA OR ARRHYTHMIAS NOTED. PATIENT DENIED CHEST PAIN. RESPIRATORY EVEN AND NON LABORED. TOLERATED WELL. SEE NUCLEAR MEDICINE REPORT.
--- NOTE | 2020-01-28 22:36 | CON ---
Date of Consultation: 01/28/2020 Reason For Consultation: Chest pain. History Of Present Illness: Ms. Selby is a 74-year-old woman who has had a history of CVA, CAD, Alz heimer's dementia, essential tremors. She came in with chest pain that is left-sided, nonradiating, sharp stabbing, no relation to exertion, food body position or time of the day. No nausea, vomiting, diaphoresis, PND, orthopnea, pedal edema, palpitations, or syncope. Her troponin was negative. CPK , and MBs were negative. Her BNP was negative. Her chest x-ray and EKGs were normal. She has had a stent in 2017 of her LAD. Past Medical History: As stated above. Allergies: SHE IS ALLERGIC TO CODEINE. Review of Systems: Negative. Social History: Negative. Family History: Negative. Medications: At home include Lipitor, Plavix, Exelon patch, Aricept, Ativan, and Mysoline. Physical Examination: Vital Signs: Stable. Blood pressure is 160/68, sinus rhythm. HEENT: Negative. Neck: Supple without any bruit, lymphadenopathy, JVD, or thyromegaly. Chest: Clear to auscultation and percussion. Cardiac: Revealed a regular rhythm and rate without any murmurs, gallops, or rubs. Abdomen: Benign. Extremities: Revealed no clubbing, cyanosis, or edema. Diagnostic Data: As stated above. Impression And Plan: Patient with history of CAD, status post LAD stent in 2017, normal EKG, normal troponin, atypical chest pain, normal chest x-ray. Echocardiogram and Lexiscan had been ordered by Chad Aguila. We will see what those shows prior to making final decisions. Her other problems include C VA, dementia, Alzheimer's, essential tremors seem to be stable at this point. We will continue her p resent regimen. She has dyslipidemia, for which she is taking Lipitor, Plavix is on board. NB/MODL Voice ID: [id number] Report ID: [id number]
--- NOTE | 2020-01-29 10:13 | ECHO ---
HEIGHT: 5 ft 4 in WEIGHT: 130 lb 0 oz DATE OF STUDY: 01/28/[address]: Patricia Aguila MD 2-DIMENSIONAL: YES M.MODE: YES DOPPLER: YES COLOR FLOW: YES TDS: NO PORTABLE: NO DEFINITY: NO BUBBLE STUDY: NO DIAGNOSIS: CHEST PAIN RULE OUT ACS CARDIAC HISTORY: CATHERIZATION: NO SURGERY: NO PROSTHETIC VALVE: NO PACEMAKER: NO MEASUREMENTS (cm) DIASTOLIC (NORMALS) SYSTOLIC (NORMALS) IVSd 1.0 (0.6-1.2) LA Diam 2.6 (1.9-4.0) LVEF 61% LVIDd 3.5 (3.5-5.7) LVIDs 2.4 (2.0-3.5) %FS 32% LVPWd 1.0 (0.6-1.2) Ao Diam 2.1 (2.0-3.7) 2 DIMENSIONAL ASSESSMENT: RIGHT ATRIUM: NORMAL LEFT ATRIUM: NORMAL RIGHT VENTRICLE: NORMAL LEFT VENTRICLE: NORMAL TRICUSPID VALVE: NORMAL MITRAL VALVE: MITRAL ANNULAR CALCIFICATION PULMONIC VALVE: NORMAL AORTIC VALVE: NORMAL PERICARDIAL EFFUSION: NONE AORTIC ROOT: NORMAL LEFT VENTRICULAR WALL MOTION: NORMAL DOPPLER/COLOR FLOW: NORMAL COMMENTS: NORMAL LEFT VENTRICULAR SIZE AND FUNCTION. MITRAL ANNULAR CALCIFICATION. NO EFFUSION. NO WALL MOTION ABNORMALITY. TECHNOLOGIST: Fiona EDMOND
== END 2020-01-28 14:20 | disposition home or self-care (01) ==
LOC: ER 18:44 → ERHOLD 21:24 → 4TH 01-28 07:21
PROVIDERS: ADMIT Hospitalist; ATTEND Hospitalist
DX: R07.89 Other chest pain (principal); G30.9 Alzheimer's disease, unspecified; F02.80 Dementia in other diseases classified elsewhere, unspecified severity, without behavioral disturbance, psychotic disturbance, mood disturbance, and anxiety; G20 Parkinson's disease; G25.0 Essential tremor; E78.5 Hyperlipidemia, unspecified; I10 Essential (primary) hypertension; E03.9 Hypothyroidism, unspecified; I25.10 Atherosclerotic heart disease of native coronary artery without angina pectoris; I25.2 Old myocardial infarction; Z11.59 Encounter for screening for other viral diseases; Z79.02 Long term (current) use of antithrombotics/antiplatelets; Z79.899 Other long term (current) drug therapy; Z95.5 Presence of coronary angioplasty implant and graft; Z86.73 Personal history of transient ischemic attack (TIA), and cerebral infarction without residual deficits; Z87.891 Personal history of nicotine dependence
CPT/HCPCS: 93005; 93017; 93306; 85025 ×2; 80048 ×2; 36415; 83735; 85610; 80061; 84484 ×3; 83880; 71045; 78452; 96375; 96374; 99285; U0002; J1200; J1650; J2785; A9500; G0378 ×2